=== PATIENT | female | born 1970 | race Caucasian/White ===

== ENCOUNTER 2016-08-08 11:54 | Day surgery (SDC) | payer OTHER ==
[2016-08-07 10:29] VITALS: BP 124/73
[~2016-08-08] VITALS: Ht 157.5 cm; Wt 89.0 kg
[~2016-08-08 11:54] MED LIST: ESTR1PAT65 TD
[2016-08-08] MEDS ORDERED: LACTATED RINGERS 1,000 ML IV SCH (12:13)
[2016-08-08 12:18] VITALS: BP 124/73
[2016-08-08] MEDS ORDERED: CETI10CA PO (12:18)
[2016-08-08] MEDS ORDERED: IBUP1TAB76 PO (12:18)
[2016-08-08] MEDS ORDERED: OXYCODONE PO (12:18)
[2016-08-08] MEDS ORDERED: LIDOCAINE 1%, 2ML SQ PRN (12:30)
[2016-08-08] MEDS ORDERED: LIDOCAINE 1%-EPI 1:100K, 50ML ONE (13:35)
[2016-08-08] MEDS ORDERED: BUPIVACAINE/PF 0.5% ONE (13:35)
[2016-08-08] MEDS ORDERED: NEOSPORIN OINT, 15GM ONE (13:35)
[2016-08-08] MEDS ORDERED: BUPIVACAINE/PF-EPI 0.25% 1:200K ONE (13:36)
[2016-08-08] MEDS ORDERED: FENTANYL PF 250 MCG/5ML ONE (13:47)
[2016-08-08] MEDS ORDERED: MIDAZOLAM 1 MG/ML, 2ML ONE (13:47)
[2016-08-08] MEDS ORDERED: TEMPLATE NON-FORMULARY MED. (Cetirizine Hcl** (Zyrtec**) 10 MG) PO SCH (14:00)
[2016-08-08] MEDS ORDERED: IBUPROFEN PO SCH (14:00)
[2016-08-08] MEDS ORDERED: FAMOTIDINE PO SCH (14:00)
[2016-08-08] MEDS ORDERED: OXYCODONE PO SCH (14:00)
[2016-08-08] MEDS ORDERED: PROPOFOL 10 MG/ML, 50ML ONE (14:05)
[2016-08-08] MEDS ORDERED: CEFAZOLIN 1,000 MG ONE (14:05)
[2016-08-08] MEDS ORDERED: SUCCINYLCHOLINE 20 MG/ML, 10ML ONE (14:05)
[2016-08-08] MEDS ORDERED: DEXAMETHASONE 4 MG/ML, 5ML ONE (14:05)
[2016-08-08] MEDS ORDERED: ONDANSETRON 2MG/ML, 2ML ONE (14:05)
[2016-08-08] MEDS ORDERED: PROMETHAZINE 25 MG/ML, 1ML IV PRN (15:00)
[2016-08-08] MEDS ORDERED: ACETAMINOPHEN 325 MG TABLET PO PRN (15:00)
[2016-08-08] MEDS ORDERED: FENTANYL PF 100 MCG/2ML IV PRN (15:00)
[2016-08-08] MEDS ORDERED: OXYcodone 5 MG/5 ML ORAL.SOL UDC PO PRN (15:00)
[2016-08-08] MEDS ORDERED: OXYcodone 5 MG/5 ML ORAL.SOL UDC ONE (16:35)
[2016-08-08] MEDS ORDERED: MORPHINE SULFATE 4 MG/ML, 1ML ONE (16:50)
[2016-08-09] MEDS ORDERED: ESTRADIOL 0.05 MG/24 HR PATCH TD SCH (09:00)
== END 2016-08-08 19:10 | disposition home or self-care (01) ==
LOC: OUT 11:54
PROVIDERS: ATTEND Orthopaedic Surgery
DX: S46.011A Strain of muscle(s) and tendon(s) of the rotator cuff of right shoulder, initial encounter (principal); S43.431A Superior glenoid labrum lesion of right shoulder, initial encounter; S42.291A Other displaced fracture of upper end of right humerus, initial encounter for closed fracture; M75.41 Impingement syndrome of right shoulder; M19.011 Primary osteoarthritis, right shoulder; S46.211A Strain of muscle, fascia and tendon of other parts of biceps, right arm, initial encounter; J30.2 Other seasonal allergic rhinitis; Z90.49 Acquired absence of other specified parts of digestive tract; Z90.710 Acquired absence of both cervix and uterus; X58.XXXA Exposure to other specified factors, initial encounter; Y93.9 Activity, unspecified; Y92.9 Unspecified place or not applicable; Y99.9 Unspecified external cause status
CPT/HCPCS: 29823; 29824; 29826; 29827; 29828; J0330; J0690; J1100; J2250; J2405; J2704; J3010; J3490; J7120